=== PATIENT | male | born 1955 | race Caucasian/White ===

== ENCOUNTER 2016-11-27 19:05 | Inpatient (IN) | payer OTHER ==
--- NOTE | ~2016-11-27 | CN ---
Consultation Report [facility] [address] [place]. [address] NAME: RAMA WHARTON : 53 STATUS : ADM IN PAT#: [id number] AGE: 61 ADM/REG DATE : 11/27/16 MR#: [id number] REPORT SERV DATE: 11/30/16 DICTATED BY: LUIS FERNANDO VAZ DATE: 11/30/16 REPORT STATUS : Draft TRANSCRIBED BY: MODL DATE: 11/30/16 CONSULT REPORT DATE OF CONSULTATION: 11/30/2016 NURSE-PRACTITIONER WITH CARDIOTHORACIC SURGERY REASON FOR CONSULTATION: Multivessel coronary artery disease. REQUESTING PHYSICIAN: Dr. Ever Mendoza. HISTORY OF PRESENT ILLNESS: This is a pleasant 61-year-old male with a history of coronary artery disease with prior stenting by Dr. Brian 10 years ago. He also has a history of poorly-controlled diabetes with a couple of recent admissions with DKA. The patient was transferred here from [facility] on 11/27/2016, with DKA and atrial fibrillation RVR. Upon admission, his BNP was elevated at around 500 and his troponin was elevated at 6.6. The patient was taken for cardiac catheterization today and found to have significant multivessel disease with flow-limiting lesions to his left circumflex proximal to mid LAD, first obtuse marginal, second obtuse marginal, RCA and right PEA. He had an echocardiogram on 11/28/2016, which showed mildly to moderately depressed left ventricular ejection fraction estimated to be around 40% with mild mitral regurgitation, aortic regurgitation, and tricuspid regurgitation. The patient did drop his platelets after exposure to heparin and currently has a HIT panel pending. He is currently recovering after his right radial arteriogram with no complaints of chest pain or shortness of breath. His is with him at the bedside. PAST MEDICAL HISTORY: Type 2 diabetes mellitus, DKA, coronary artery disease, and hypertension. PAST SURGICAL HISTORY: No major surgeries other than PCI around 10 years ago. FAMILY HISTORY: Positive for coronary artery disease. 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 He is , with two grown children and several grandchildren. He smoked on and off for the past 30 years and uses smokeless tobacco. He says he quit cigarettes 1 year ago. Denies any history of alcohol abuse or use of illicit drugs. REVIEW OF SYSTEMS: A 10-point review of systems was obtained and is negative other than HPI. PHYSICAL EXAMINATION: VITAL SIGNS: From today temperature 97.5, heart rate 72 sinus rhythm, blood pressure 127/74, respiratory rate 16, and O2 saturation 96% on room air. GENERAL: Pleasant thin male, in no acute distress. Consultation Report [facility] [id number] [place]. [address] NAME: RAMA WHARTON : 53 STATUS : ADM IN PAT#: [id number] AGE: 61 ADM/REG DATE : 11/27/16 MR#: [id number] REPORT SERV DATE: 11/30/16 DICTATED BY: LUIS FERNANDO VAZ DATE: 11/30/16 REPORT STATUS : Draft TRANSCRIBED BY: MODL DATE: 11/30/16 NEUROLOGIC: Alert and oriented x3. Pupils are equal, round, and reactive to light and accommodation. HEENT: Head normocephalic and atraumatic. Sclerae clear. Nose is midline with no abnormalities. Teeth with no abnormalities. Ears with no abnormalities. NECK: Supple with no thyromegaly or lymphadenopathy. LUNGS: Clear to auscultation bilaterally with normal effort. CARDIAC: S1, S2 with no murmurs, rubs, or gallops. ABDOMEN: Soft, nondistended with active bowel sounds. EXTREMITIES: Free of cyanosis, clubbing, or edema. LABORATORY DATA: From today, white blood cell count 8.0, hemoglobin 13, hematocrit 39, and platelets 122. Sodium 146, potassium 3.4, chloride 113, bicarbonate 28, BUN 12, creatinine 0.6, glucose 46, and hemoglobin A1c 11. ASSESSMENT AND PLAN: This is a pleasant 61-year-old male with a history of coronary artery disease as well as history of poorly-controlled diabetes, admitted with NSTEMI, DKA, and atrial fibrillation with RVR. Atrial fibrillation now resolved after amiodarone drip. The patient was taken for cardiac catheterization today and found to have multivessel coronary artery disease as mentioned above. Official cath report is pending but the patient will need around 4-to-5 vessel CAB plus or minus Maze procedure. I discussed the risks and benefits of the coronary bypass grafting with the patient and his as well as alternatives to surgery and his STS risk scores. STS risk stratification for him and this particular surgery include an overall mortality of 1% and a morbidity mortality of 10.5%. I discussed these findings in relation to his expectations for surgery and recovery, and the patient is willing to proceed. I will discuss the plan of care with Dr. Weeks and we will review the images and plan for surgical intervention either on Wednesday or of this week. I thank you for the consultation and we look forward to helping you take care of Mr. Rama Wharton. JONA/LONG Luis Fernando aVz NP / [id number] CC: Luis Fernando Mathis IV, M.D.
--- NOTE | ~2016-11-27 | CN ---
Consultation Report [facility] [address] [place]. 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 Brian some 10 years ago, was admitted with increasing blood sugar, and found to be in diabetic ketoacidosis. His blood sugar was 630 on admission is now 162 mg percent this morning. BUN and creatinine are 36 and 1.17 mg percent respectively. He had been transferred from [facility] last night on amiodarone drip for paroxysmal atrial fibrillation. His TSH is low at 0.1 x2. Free T4 and free T3 are pending. B-type natriuretic peptide is elevated at 472, but he denies being short of breath. He denies any chest pain. EKG shows previous inferior myocardial infarction. He denies being hypertensive and sees Dr. Allen his regular physician. He says he is on insulin, but have no other medications recorded at this time from home. FAMILY HISTORY: Positive for heart disease. SOCIAL HISTORY: He is and has two children, apparently both healthy. ALLERGIES: THERE ARE NO KNOWN ALLERGIES TO MEDICATIONS. PAST SURGICAL HISTORY: He denies any major operative procedures other than stenting several years ago. At the present time, he is not short of breath or having chest pain. PHYSICAL EXAMINATION: VITAL SIGNS: Blood pressure 130/70. HEENT: Head is normocephalic. Eyes, PERRLA. Nose had no epistaxis. SKIN: Clear of ulcerations. NECK: Supple. CHEST: Clear. Good breath sounds. Absence of rales, rhonchi, or wheezes. HEART: Regular rhythm. Normal S1 and S2. There is an S3 third heart sound that is prominent in the lower left sternal border and apex. I hear no pathologic murmurs. ABDOMEN: Benign. Nontender. He is somewhat thin. EXTREMITIES: He had no clubbing, edema, or cyanosis. NEUROLOGIC: Exam intact. He is oriented to time, place, and person. He does not like to be in the hospital. CLINICAL IMPRESSIONS: 1. Non ST-elevation myocardial infarction. 2. Diabetic ketoacidosis. 3. Probable hyperthyroidism. 4. Paroxysmal atrial fibrillation, presently in sinus rhythm. 5. Previous stenting for coronary artery disease, remote. Consultation Report [facility] [address] [place]. [address] NAME: RAMA KIRK : 53 STATUS : ADM IN PAT#: [id number] AGE: 61 ADM/REG DATE : 11/27/16 MR#: [id number] REPORT SERV DATE: 11/28/16 DICTATED BY: REYES BUSH DATE: 11/28/16 REPORT STATUS : Draft TRANSCRIBED BY: LONG DATE: 11/28/16 RECOMMENDATIONS: 1. Add low-dose Coreg. 2. Change to oral amiodarone, he was started on IV amiodarone yesterday at [facility] ,and is presently in sinus rhythm. 3. Crestor statin therapy. 4. Aspirin. 5. Continue heparin drip. 6. Continue therapy for diabetic ketoacidosis. He will be a candidate for repeat catheterization when DKA is resolved and renal function is stable. Further recommendations to follow clinical course. An echocardiogram to be done this morning. DI/LONG Reyes Bush M.D. / [id number] CC: Juancho Mathis IV, M.D.
--- NOTE | ~2016-11-27 | HP ---
History And Physical [facility] [address] [place]. [address] NAME: RAMA KIRK : 53 STATUS : ADM IN [facility]#: [id number] AGE: 61 ADM/REG DATE : 11/27/16 MR#: [id number] REPORT SERV DATE: 11/27/16 DICTATED BY: HEATHER BROWER DATE: 11/27/16 REPORT STATUS : Draft TRANSCRIBED BY: MODL DATE: 11/27/16 DATE OF ADMISSION: 11/27/2016 CHIEF COMPLAINT: High blood sugar. HISTORY OF PRESENT ILLNESS: The patient is a 61-year-old, white gentleman with a past medical history of type 2 diabetes, on long-acting and short-acting insulin as well as coronary artery disease and hypertension, who presented to an outside ER tonight with high blood sugar. The patient was last hospitalized for diabetic ketoacidosis in March of last year. Since that time, he said he has been doing well. He takes both short and long- acting insulin at home and says he has been taking those without missing any doses. He denies any recent illnesses. He says beginning last night after dinner, he began having nausea and vomiting that persisted overnight and into today and he is unable to keep anything down. He denies any abdominal pain associated with this. Denies any fevers, chills, or sweats. Apparently, over the course of the day, he became more lethargic and altered and his brought him to the outside emergency room where he was found to be in diabetic ketoacidosis with anion gap of 46, pH is 7.1, acute renal failure with a creatinine of 2.1 and was in new onset atrial fibrillation with rapid ventricular response. He was treated with IV fluids and insulin drip, placed on the amiodarone drip for his atrial fibrillation, and transferred here for further management. Of note, he also had hyperkalemia on arrival there with a potassium of 6.7, which should come down to 5 prior to transfer here. On arrival here, he is now completely awake and alert and oriented x3. He remains on amiodarone drip as well as an insulin drip. We are currently awaiting his lab values here. PAST MEDICAL HISTORY: 1. Type 2 diabetes. 2. Coronary artery disease. 3. Hypertension. 4. Questionable history of a diagnosis of multiple sclerosis. HOME MEDICATIONS: See medication reconciliation form. ALLERGIES: NO KNOWN DRUG ALLERGIES. SOCIAL HISTORY: He lives in [place], [place]. 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 Has a history of smoking and snuff, though nothing recently. He denies any alcohol or IV drug abuse. FAMILY HISTORY: History of CVA and breast cancer in his mother as well as coronary artery disease in his father. He also has a sister with thyroid disease and another sister with irritable bowel syndrome. REVIEW OF SYSTEMS: 10-point review of systems negative except as mentioned in the HPI. History And Physical [address] [address] NAME: RAMA KIRK : 53 STATUS : ADM IN [facility]#: [id number] AGE: 61 ADM/REG DATE : 11/27/16 MR#: [id number] REPORT SERV DATE: 11/27/16 DICTATED BY: HEATHER BROWER DATE: 11/27/16 REPORT STATUS : Draft TRANSCRIBED BY: LONG DATE: 11/27/16 PHYSICAL EXAMINATION: GENERAL: In no acute distress. HEENT: Pupils equal, round, and reactive to light. Extraocular movements intact. Dry mucous membranes. NECK: Supple. Nontender. No lymphadenopathy. No thyromegaly. No jugular venous distention. LUNGS: Clear to auscultation bilaterally. CARDIOVASCULAR: Tachycardic. No murmurs, rubs, or gallops. ABDOMEN: Soft, nontender, nondistended. Positive bowel sounds. No hepatosplenomegaly. EXTREMITIES: No cyanosis, clubbing, or edema. NEUROLOGIC: Alert and oriented x3. Cranial nerves intact. PSYCH: Mood appropriate. LABS AND IMAGING: Pending at our institution. At the outside hospital, his creatinine was 2.1. His pH was 7.1. His sodium was within normal limits. His initial potassium was 6.7, which came down to 5.0 on the next lab check. His initial glucose over there was greater than a 1000. His EKG showed atrial fibrillation with rapid ventricular response in the 150s to 160s. [place] [address]. His serum acetones were moderate. ASSESSMENT AND PLAN: The patient is a 61-year-old gentleman with past medical history of type 2 diabetes, coronary artery disease, and hypertension, who presents with diabetic ketoacidosis, acute renal failure, and atrial fibrillation with rapid ventricular response. 1. Diabetic ketoacidosis. The patient will be placed on DKA protocol. He is currently getting normal saline and an insulin drip. We will repeat his BMP here and then check it q.6 hours as well as a mag and a phos. We will also check his fingerstick glucoses q.1 hour and we will treat him appropriately. Assuming his potassium is within normal limits, we will place him on electrolyte replacement protocol. Once glucose drops less than 200, we will change his IV fluids to D5 half-normal saline and decrease his insulin drip. When the patient is able to take p.o. and his anion gap closes, we will transition him over to subcutaneous insulin. 2. Acute renal failure. The patient's creatinine was elevated at 2.1 at the outside hospital. Likely, this is due to volume depletion. We will monitor his urine output and electrolytes closely as we hydrate him here. 3. Atrial fibrillation with rapid ventricular response. This appears to be new onset. Currently, he is rate controlled on amiodarone drip. We will continue this overnight. We will check cardiac markers now and q.8 hours x3. We will also get an EKG here as well as echocardiogram in the morning as well as check thyroid function panel. 4. We will hold patient's home antihypertensive medicines for now. 5. Acute encephalopathy was likely secondary to his DKA, now it appears to be resolved. We will monitor his mental status closely. 6. The patient will be on heparin for DVT prophylaxis and Protonix for gastrointestinal prophylaxis. 7. The patient is full code. 8. The patient has a high probability of sudden clinically significant or life threatening deterioration in his condition. History And Physical [address] [place]. [address] NAME: RAMA KIRK : 53 STATUS : ADM IN [facility]#: [id number] AGE: 61 ADM/REG DATE : 11/27/16 MR#: [id number] REPORT SERV DATE: 11/27/16 DICTATED BY: HEATHER BROWER DATE: 11/27/16 REPORT STATUS : Draft TRANSCRIBED BY: MODL DATE: 11/27/16 Total critical care time spent on this patient was 45 minutes including review of the patient's outside records as well as time at bedside. SHILA/LONG Heather Brower MD / [id number] CC: Juancho Mathis IV, M.D.
--- NOTE | ~2016-11-27 | IDS ---
Interim Discharge Summary [facility] [address] [place]. [address] NAME: RAMA KIRK : 53 STATUS : ADM IN [facility]#: [id number] AGE: 61 ADM/REG DATE : 11/27/16 MR#: [id number] REPORT SERV DATE: 12/07/16 DICTATED BY: JR. SHERIDAN WILLIAM JOHN DATE: 12/07/16 REPORT STATUS : Draft TRANSCRIBED BY: MODDaniela DATE: 12/07/16 ADMISSION DATE: 11/27/2016 DISCHARGE DATE: The patient transferred out of the ICU on 11/30/2016, therefore, this summary will cover the time period from 12/01/2016 through 12/07/2016. WORKING DIAGNOSES: 1. Gpt-RT-kzsqxblhw myocardial infarction. 2. Multivessel coronary artery disease with status post coronary artery bypass graft with left atrial appendage ligation on 12/04. 3. Status post diabetic ketoacidosis with uncontrolled diabetes mellitus. Hemoglobin A1c of 11.1. 4. Acute kidney injury, which is resolved. 5. Right lower extremity deep vein thrombosis found on vein mapping. 6. Atrial fibrillation with rapid ventricular response. 7. Acute systolic heart failure with ejection fraction 40%. 8. Thrombocytopenia, which is resolving. OPERATIONS, PROCEDURES, AND TREATMENTS: 1. Urgent coronary artery bypass graft x3 with left internal mammary to the left anterior descending with reverse saphenous vein graft to the obtuse marginal 2 and posterior descending with pulmonary vein ablation and left atrial appendage clipping done by Dr. Weeks on 12/04/2016. 2. Chest x-ray done 11/27/2016, which showed no acute findings. 3. Echocardiogram done 11/28/2016, which showed normal left ventricular size with mild-to- moderate global left ventricular systolic dysfunction. Ejection fraction of 40% with mild left ventricular diastolic function. Normal right ventricular size and systolic function. Mild aortic, mitral, and tricuspid regurgitation. 4. Cardiac catheterization done 11/30/2016, which showed left ventricular ejection fraction of 40% with apical akinesis versus severe hypokinesis. There were diffuse 75% intrastent thrombosis in the mid LAD stent. There was long 90% in the left circumflex diffuse disease in the posterior descending and moderate coronary artery calcification. 5. CT of the chest done 11/30/2016, which showed small bilateral free-flowing pleural effusion with bibasilar dependent atelectasis, triple-vessel coronary artery disease, nonobstructing left nephrolith, and 1.3 cm left thyroid nodules. 6. Carotid flow study done 11/30/2016, which showed category 1 disease bilaterally with antegrade vertebral flow. 7. Multiple followup chest x-rays. CURRENT MEDICATIONS: Please see the list on progress note. HOSPITAL COURSE: Briefly, the patient is a 61-year-old gentleman who presented to the emergency room on 11/27/2016, with high blood sugar. The patient began having nausea and vomiting the previous evening with dinner. He became more lethargic over the course of the day and presented to the emergency room with an anion gap of 46, pH 7.1, and a creatinine of Interim Discharge Summary [address] [address] NAME: RAMA KIRK : 53 STATUS : ADM IN [facility]#: [id number] AGE: 61 ADM/REG DATE : 11/27/16 MR#: [id number] REPORT SERV DATE: 12/07/16 DICTATED BY: JR. SHERIDAN WILLIAM JOHN DATE: 12/07/16 REPORT STATUS : Draft TRANSCRIBED BY: LONG DATE: 12/07/16 2.1. The patient was admitted to the intensive care unit where he was treated with insulin drip and electrolyte management. He was incidentally found to have elevated troponin at 3.54 and 6.65 and was seen in consultation by Cardiology, underwent a cardiac catheterization and echocardiogram which are detailed above. These showed severe triple- vessel coronary disease and Thoracic Surgery was consulted. The patient underwent a workup for coronary artery bypass grafting, also had vein mapping which did show below the knee deep vein thrombosis. Eventually, the patient underwent a three-vessel coronary artery bypass graft and Maze procedure as detailed above. The patient remained in the intensive care unit for one day and was transferred to the floor. He did have thrombocytopenia. Heparin-induced thrombocytopenia panel was negative. CURRENT ISSUES: 1. Multivessel coronary artery disease with non-ST elevation myocardial infarction, status post coronary artery bypass grafting-management per Cardiology and thoracic surgery. 2. Status post diabetic ketoacidosis with uncontrolled diabetes mellitus type 2. The patient is on Levemir 15 units daily and NovoLog 5 units before meals as well as sliding scale here. At home, he was on 50 units of Levemir and 15 units before meals. We will continue present and would consider a lower dose of Levemir at discharge. 3. Acute kidney injury. This is completely resolved. 4. To the right lower extremity deep vein thrombosis, vein mapping this is below the knee, therefore anticoagulation is somewhat controversial. The patient is on aspirin and may consider a followup venous Doppler ultrasound. The patient is on Coumadin for atrial fibrillation with rapid response, which has resolved. 5. Acute systolic heart failure with ejection fraction of 40%. The patient is on Coreg, is on an MARY ANN inhibitor at home. We will defer this decision to Cardiology. 6. We will discharge this patient when okay with Cardiology, Cardiovascular, and thoracic surgery. My partner will assume care of this patient in the morning. WJF/MODL Anthony Sheridan Jr, MD / [id number] CC: Anthony Sheridan Jr, MD
--- NOTE | ~2016-11-27 | OP ---
Record Of Operation [facility] [address] [place]. [address] NAME: RAMA WHARTON : 53 STATUS : ADM IN PAT#: [id number] AGE: 61 ADM/REG DATE : 11/27/16 MR#: [id number] REPORT SERV DATE: 12/04/16 DICTATED BY: MOHAN TEMPLE DATE: 12/04/16 REPORT STATUS : Draft TRANSCRIBED BY: MODL DATE: 12/04/16 DATE OF PROCEDURE: 12/04/2016 PREOPERATIVE DIAGNOSES: 1. Non-ST segment elevation myocardial infarction. 2. Three-vessel coronary artery disease. 3. Diabetic ketoacidosis. 4. Diabetes mellitus type 2. 5. Hypertension. 6. Hyperlipidemia. 7. Paroxysmal atrial fibrillation. 8. Prior tobacco abuse. 9. Superficial deep venous thrombosis. POSTOPERATIVE DIAGNOSES: 1. Non-ST segment elevation myocardial infarction. 2. Three-vessel coronary artery disease. 3. Diabetic ketoacidosis. 4. Diabetes mellitus type 2. 5. Hypertension. 6. Hyperlipidemia. 7. Paroxysmal atrial fibrillation. 8. Prior tobacco abuse. 9. Superficial deep venous thrombosis. OPERATION/PROCEDURE PERFORMED: 1. Median sternotomy. 2. Extracorporeal circulation. 3. Urgent coronary artery bypass grafting x3, left internal mammary artery, left anterior descending, reverse greater saphenous vein graft to obtuse margin #2, reverse greater saphenous vein graft to posterior descending artery. 4. Pulmonary vein ablation. 5. Left atrial appendage clip with 35 mm AtriClip. 6. JADA. 7. Endoscopic vein harvest, right leg. 8. Prevena dressing placement. SURGEON: Mohan Temple MD PROTOCOL MANAGER: Miguelina Singer. ANESTHESIOLOGIST: Juancho Pennington M.D. TUBES AND DRAINS: A 24-Finnish Torrey to the left pleural space and a 32-Finnish anterior mediastinal chest tube. Record Of Operation [facility] [address] [place]. [address] NAME: RAMA WHARTON : 53 STATUS : ADM IN PAT#: [id number] AGE: 61 ADM/REG DATE : 11/27/16 MR#: [id number] REPORT SERV DATE: 12/04/16 DICTATED BY: MOHAN TEMPLE DATE: 12/04/16 REPORT STATUS : Draft TRANSCRIBED BY: MODL DATE: 12/04/16 POSTOPERATIVE CONDITION: Stable to CVICU. DETAILS OF CARDIOPULMONARY BYPASS: Cross-clamp of 74 minutes. Total cardiopulmonary bypass time of 99 minutes. Weaned on 5 mcg per kilo per minute of dobutamine. INTRAOPERATIVE FINDINGS: Transesophageal echo showed trace TR, mild MR, no , trace AI, EF was 40%. Post procedure, his EF was approximately 50%. ANATOMIC FINDINGS: Posterior descending artery was diffusely diseased. The major portion of the diffuse disease was split and a patch angioplasty was performed with the saphenous vein graft with anastomosis approximately 2.5 cm in length. D1 and D2 were 7 mm in size. DETAILS OF PULMONARY VEIN ISOLATION: PVI was performed with atrial clamp x3 on each pulmonary vein cuff in an X pattern and then one in the middle of the X and then a 35 mm AtriClip was placed in the left atrial appendage. DETAILS OF CARDIOPULMONARY BYPASS GRAFTIN. Graft #1, left internal mammary to left anterior descending. This was a 1.75 mm target. Reverse greater saphenous vein graft to obtuse marginal #2. This was a 2 mm target. Reverse greater saphenous vein graft to posterior descending artery. This was a 1.5 mm target with diffuse disease with a 2.5 cm patch angioplasty performed with anastomosis. There were excellent Doppler signals, both pre and post protamine. INDICATIONS FOR PROCEDURE: Mr. Wharton is a 61-year-old gentleman who presented with diabetic ketoacidosis, found to have an NSTEMI, and then was found to undergo a heart catheterization which revealed three-vessel coronary artery disease. In addition, he had paroxysmal atrial fibrillation. The risks, benefits, and alternatives were discussed with the patient including but not limited to, bleeding, infection, stroke, , heart attack, need for future operations, all questions were answered. His STS risk was calculated, mortality 1% and total morbidity of 10.5%. All questions were answered. His STS risk were discussed with the patient's family. DESCRIPTION OF PROCEDURE: The patient was brought to the operating room and placed supine on the operating room table. After satisfactory induction of general endotracheal anesthesia, he was prepped and draped in the usual sterile fashion. Working simultaneously, the median sternotomy was performed while endoscopic vein harvest was performed from the right leg. Skin and subcutaneous tissues were divided. Clavipectoral fascia was divided. Sternum was divided in the midline. Rultract retractor was placed and the internal mammary artery was harvested in a pedicle fashion from its takeoff under the subclavian vein to the bifurcation of the diaphragm. Systemic heparinization was achieved. After three minutes, the pedicle was clipped and divided. The bifurcation of the diaphragm was infiltrated with papaverine. A 24-Finnish Torrey was placed in the left pleural space and exteriorized. Sternal retractor was placed. Thymic tissue was divided in the midline up to the innominate vein. Pericardium was opened. Pericardial well was created. Ascending aortic cannulation was achieved through a dual pursestring at the base of the innominate artery. Antegrade root vent cardioplegia tack was placed. The dual stage venous cannula was placed through pursestring in the right atrial appendage. The conduit was prepared for bypass. Record Of Operation [facility] [address] [place]. [address] NAME: RAMA WHARTON : 53 STATUS : ADM IN [facility]#: [id number] AGE: 61 ADM/REG DATE : 11/27/16 MR#: [id number] REPORT SERV DATE: 12/04/16 DICTATED BY: MOHAN TEMPLE DATE: 12/04/16 REPORT STATUS : Draft TRANSCRIBED BY: LONG DATE: 12/04/16 Cardiopulmonary bypass was initiated after documentation of an adequate ACT. The right pulmonary vein cuff was dissected out. The AtriCure clamp was placed around the cuff ensuring that just the cuff of atrium was in the clamp and the clamp was applied for three times per the dental cream maker's specifications. The attention was turned to the left pulmonary vein cuff and the left pulmonary vein cuff was dissected out and the clamp was applied to the vein cuff three times according to the dental cream maker's specifications. The left atrial appendage was then measured, the base was measured, it was measured to a 35 mm AtriClip, 35 mm clip was brought up and placed at the base of the left atrial appendage. Cross-clamp was brought up. The heart was arrested with cold antegrade cardioplegia for a total of 800 mL switched to intermittent aliquots every 15 to 20 minutes throughout the remainder of the cross clamp. The vein grafts were then performed as mentioned in the findings. Reverse greater saphenous vein graft to posterior descending artery. A large portion of the artery was opened approximately 2.5 cm and a patch angioplasty was performed using the anastomosis, this was done with 8-0 Surgipro. The vein was cut to length, spatulated, and then attention was turned to the obtuse marginal #2. It was opened on the soft spot. A vein was brought up, spatulated, and a running continuous anastomosis was performed between reverse greater saphenous vein graft and the obtuse marginal #2. The vein was cut to length, spatulated. Proximal aortotomies were performed enlarged with a 5.2 mm punch and running continuous anastomosis were performed using 6-0 Prolene. Vein graft markers were placed. The internal mammary artery was brought down through a wide V in the pericardium. It was spatulated and anastomosed to a soft spot on the anterior portion of the LAD. Clip bulldog was removed. There was excellent flow, both in the graft and the proximal artery and the distal artery. Epicardium was attached to the pedicle in two places and vein grafts were de-aired and the cross-clamp was removed. The patient returned to normal sinus rhythm. He was able to be weaned from cardiopulmonary bypass without incident. Protamine was administered. He was decannulated. All cannulation sites were oversewn with 4-0 Prolene. The pericardium was loosely reapproximated over the right ventricle and the ascending aorta. Hemostasis was obtained. A 24-Finnish Torrey had been placed in the left pleural space and then exteriorized. A 32-Finnish chest tube was placed under the sternum. Hemostasis was obtained. The sternum was approximated with eight stainless steel sternal wires, some of these were double wires. Clavipectoral fascia was reapproximated using running #1 Stratafix, subcutaneous tissues closed using running #1 Stratafix, skin and subcutaneous tissues closed using 2-0 Quill. A Prevena dressing was placed. The patient was transferred to the CVICU in critical, stable condition. [facility]/MODL Mohan Temple MD / [id number] CC: Mohan Temple MD
--- NOTE | ~2016-11-27 | DS ---
Discharge Summary [facility] [address] [place]. [address] NAME: RAMA KIRK : 53 STATUS : DIS IN PAT#: [id number] AGE: 61 ADM/REG DATE : 11/27/16 MR#: [id number] REPORT SERV DATE: 12/09/16 DICTATED BY: HARITHA RHODES DATE: 12/08/16 REPORT STATUS : Draft TRANSCRIBED BY: MODL DATE: 12/08/16 ADMISSION DATE: 11/27/2016 DISCHARGE DATE: 12/08/2016 DISCHARGE DIAGNOSES: 1. Diabetic ketoacidosis, resolved. 2. Uncontrolled diabetes mellitus with A1c 11.1, interestingly the patient requires less amount of insulin at home. 3. Resolved acute kidney injury. 4. Dlv-SE-jhfnrejfa myocardial infarction/status post CABG three-vessels. 5. Hypertension. 6. Atrial fibrillation. 7. Chronic Coumadin use, started here. 8. Chronic heart failure, systolic dysfunction with ejection fraction 40%. NIGHT COURT MAGISTRATE: 1. Dr. Weeks. 2. Dr. Bush. HISTORY OF PRESENT ILLNESS: This is a 61-year-old male patient who came to the hospital with hyperglycemia, was found to have non-ST elevation MT. Please see dictated H and P done by Dr. Miller. Please see dictated interim discharge summary done by Dr. Sheridan. HOSPITAL COURSE: The patient was admitted to hospital with DKA, was found to have non-ST elevation MT, had went through cardiac evaluation, was found to have multivessel disease and consulting Dr. Weeks. He had a CABG done and transferred out of the unit. After he came out of the unit, he improved. Initially, he came with DKA with uncontrolled diabetes, seen by diabetic education nurse. Interestingly, the patient's insulin requirement is much less than at home dose and emphasized the diabetic education again. He voiced understanding about insulin use. Therefore, the discharge insulin will be Levemir/Lantus 15 units at night and NovoLog 5 units for each meal. He voiced understanding and education was given more than 30 minutes. TIME SPENT: More than 30 minutes. DISCHARGE MEDICATION: 1. Aspirin 81 mg once a day. 2. Atorvastatin 40 mg once at nighttime. 3. Amiodarone 200 mg twice a day. 4. Carvedilol 3.125 mg twice a day. 5. Levemir/Lantus 15 units at night. 6. NovoLog 5 units for each meal. Discharge Summary [place] [id number] [place]. [address] NAME: RAMA KIRK : 53 STATUS : DIS IN PAT#: [id number] AGE: 61 ADM/REG DATE : 11/27/16 MR#: [id number] REPORT SERV DATE: 12/09/16 DICTATED BY: HARITHA RHODES DATE: 12/08/16 REPORT STATUS : Draft TRANSCRIBED BY: MODL DATE: 12/08/16 7. Lisinopril 2.5 mg once a day. 8. [place] 10 was given from Cardiothoracic Surgery for postop care. DISPOSITION: The patient is discharged to home in stable condition. DICTATED BY: Mel Randall/LONG Haritha Rhodes M.D. / [id number] CC: Mel Randall M.D.
[~2016-11-27 19:05] MED LIST: HUMALOG SC; LANTUS SC; LEVEMIR SC; LOP25 PO; NOVOLOG SC; PRAVACHOL40 MG PO; PRIN2.5 PO
[2016-11-27 21:35] LABS: BASOPHILS 0.2 %; BASOPHILS ABSOLUTE 0.03 10/3/uL (0.0-0.16); EOSINOPHILS 0 %; HEMATOCRIT 42.5 % (40.0-51.0); IMMATURE GRANULOCYTES 0.6 %; IMMATURE GRANULOCYTES ABSOLUTE 0.09 10/3/uL (0.0-0.11); LYMPHOCYTES 7.3 %; LYMPHOCYTES ABSOLUTE 1.16 10/3/uL (0.67-4.30); MEAN CORPUS HGB CONC 32.9 g/dL (32.0-36.0); MEAN CORPUSCULAR HEMOGLOB 28.7 pg (26.0-34.0); MEAN CORPUSCULAR VOLUME 87.3 fL (80-100); MEAN PLATELET VOLUME 10.4 fL (9.2-13.0); MONOCYTES 7.2 %; MONOCYTES ABSOLUTE 1.14 10/3/uL (0.21-1.20); NEUTROPHILS 84.7 %; NEUTROPHILS ABSOLUTE 13.51 10/3/uL (2.02-8.40); PLATELET COUNT 181 10/3/uL (150-400); RBC DISTRIBUTION WIDTH 13.6 % (12.0-16.0); RED CELL COUNT 4.87 10/6/uL (4.7-6.1)
[2016-11-27 21:36] LABS: MANUAL DIFF NO %; WHITE BLOOD CELLS 15.9 10/3/uL (4.5-10.5)
[2016-11-27 21:41] LABS: INTERNATIONAL NORMAL RATI 1.2 UNITS (-); PROTIME (NOT ORD) 14.6 SEC (12.0-14.5)
[2016-11-27 21:43] LABS: PARTIAL THROMBO TIME 22.4 SEC (22.5-37.2)
[2016-11-27 22:03] LABS: BUN (BLOOD UREA NITROGEN) 46 MG/DL (6-23); CALCIUM, SERUM 8.9 MG/DL (8.5-10.4); CHLORIDE, SERUM 107 MMOL/L (96-112); CK-MB 17.5 NG/ML; CO2 (CARBON DIOXIDE) 17 MMOL/L (24-34); CREATININE 1.93 MG/DL (0.70-1.30); GFR AFRICAN AMERICAN 42 ML/MIN (>=60); GFR NON AFRICAN AMERICAN 36 ML/MIN (>=60); POTASSIUM, SERUM 4.6 MMOL/L (3.5-5.3); SODIUM, SERUM 144 MMOL/L (135-148)
[2016-11-27 22:04] LABS: CKMB INDEX (NOT ORD) 10.9; CPK 161 U/L (0-200); GLUCOSE, SERUM 630 MG/DL (60-99); TROPONIN I 3.54 NG/ML (<0.05)
[2016-11-27 22:11] LABS: B NATRIURETIC PEPTIDE (BNP) 471.5 PG/ML (< 100.0)
[2016-11-27 23:01] LABS: PROCALCITONIN 0.62 ng/mL (<0.5)
[2016-11-27 23:10] LABS: ASCORBIC ACID (UR NOT ORDER) NEG (NEG); BILIRUBIN, URINE NEGATIVE (NEG); KETONE, URINE 80 MG/DL (NEG); LEUKOCYTE ESTERASE(NOT OR NEG (NEG); WBC (NOT ORDERED) (RFLEX) 1 (0-5)
[2016-11-27 23:30] LABS: AMPHETAMINES (NOT ORD) NEG (NEG); BARBITURATES (NOT ORDERED NEG (NEG); BENZODIAZEPINES (NOT ORD) NEG (NEG); CANNABINOIDS (THC) NEG (NEG); COCAINE (NOT ORDERED) NEG (NEG); OPIATES NEG (NEG); PHENCYCLIDINE(PCP) NEG (NEG); TRICYCLICS NEG (NEG)
[2016-11-28 04:14] LABS: BASOPHILS 0.1 %; BASOPHILS ABSOLUTE 0.01 10/3/uL (0.0-0.16); EOSINOPHILS 0 %; HEMATOCRIT 39.3 % (40.0-51.0); IMMATURE GRANULOCYTES 0.2 %; IMMATURE GRANULOCYTES ABSOLUTE 0.03 10/3/uL (0.0-0.11); LYMPHOCYTES 7.9 %; LYMPHOCYTES ABSOLUTE 0.98 10/3/uL (0.67-4.30); MEAN CORPUS HGB CONC 33.1 g/dL (32.0-36.0); MEAN CORPUSCULAR HEMOGLOB 28.5 pg (26.0-34.0); MEAN CORPUSCULAR VOLUME 86.2 fL (80-100); MEAN PLATELET VOLUME 10.5 fL (9.2-13.0); MONOCYTES 6.8 %; MONOCYTES ABSOLUTE 0.84 10/3/uL (0.21-1.20); NEUTROPHILS ABSOLUTE 10.58 10/3/uL (2.02-8.40); PLATELET COUNT 170 10/3/uL (150-400); RBC DISTRIBUTION WIDTH 13.7 % (12.0-16.0); RED CELL COUNT 4.56 10/6/uL (4.7-6.1); WHITE BLOOD CELLS 12.4 10/3/uL (4.5-10.5)
[2016-11-28 04:15] LABS: MANUAL DIFF NO %
[2016-11-28 04:35] LABS: CHLORIDE, SERUM 100 MMOL/L (96-112); CK-MB 17.5 NG/ML; CREATININE 1.52 MG/DL (0.70-1.30); GFR AFRICAN AMERICAN 56 ML/MIN (>=60); GFR NON AFRICAN AMERICAN 48 ML/MIN (>=60)
[2016-11-28 04:37] LABS: BUN (BLOOD UREA NITROGEN) 33 MG/DL (6-23); CALCIUM, SERUM 7.6 MG/DL (8.5-10.4); CKMB INDEX (NOT ORD) 8.9; CO2 (CARBON DIOXIDE) 22 MMOL/L (24-34); CPK 196 U/L (0-200); GLUCOSE, SERUM 751 MG/DL (60-99); PHOSPHORUS, SERUM 4.8 MG/DL (2.5-4.5); POTASSIUM, SERUM 3.6 MMOL/L (3.5-5.3); SODIUM, SERUM 137 MMOL/L (135-148); TROPONIN I 6.65 NG/ML (<0.05)
[2016-11-28 04:48] LABS: FREE T4 1.28 NG/DL (0.76-1.46)
[2016-11-28 04:54] LABS: ULTRASENSITIVE TSH 0.101 MCIU/ML (0.358-3.740)
[2016-11-28 06:45] LABS: BASOPHILS 0.1 %; BASOPHILS ABSOLUTE 0.01 10/3/uL (0.0-0.16); EOSINOPHILS 0 %; HEMATOCRIT 38.5 % (40.0-51.0); HEMOGLOBIN 13.3 g/dL (13.6-17.8); IMMATURE GRANULOCYTES 0.2 %; IMMATURE GRANULOCYTES ABSOLUTE 0.03 10/3/uL (0.0-0.11); LYMPHOCYTES 6.8 %; LYMPHOCYTES ABSOLUTE 0.87 10/3/uL (0.67-4.30); MEAN CORPUS HGB CONC 34.5 g/dL (32.0-36.0); MEAN CORPUSCULAR HEMOGLOB 29.2 pg (26.0-34.0); MEAN CORPUSCULAR VOLUME 84.4 fL (80-100); MONOCYTES 10.9 %; MONOCYTES ABSOLUTE 1.39 10/3/uL (0.21-1.20); NEUTROPHILS ABSOLUTE 10.49 10/3/uL (2.02-8.40); PLATELET COUNT 160 10/3/uL (150-400); RBC DISTRIBUTION WIDTH 13.8 % (12.0-16.0); RED CELL COUNT 4.56 10/6/uL (4.7-6.1); WHITE BLOOD CELLS 12.8 10/3/uL (4.5-10.5)
[2016-11-28 06:46] LABS: MANUAL DIFF NO %
[2016-11-28 07:06] LABS: BUN (BLOOD UREA NITROGEN) 36 MG/DL (6-23); CALCIUM, SERUM 7.9 MG/DL (8.5-10.4); CHLORIDE, SERUM 118 MMOL/L (96-112); CK-MB 15.9 NG/ML; CO2 (CARBON DIOXIDE) 24 MMOL/L (24-34); CPK 218 U/L (0-200); CREATININE 1.17 MG/DL (0.70-1.30); FREE T4 1.21 NG/DL (0.76-1.46); GFR AFRICAN AMERICAN 77 ML/MIN (>=60); GFR NON AFRICAN AMERICAN 66 ML/MIN (>=60); POTASSIUM, SERUM 3.9 MMOL/L (3.5-5.3)
[2016-11-28 07:08] LABS: CKMB INDEX (NOT ORD) 7.3; GLUCOSE, SERUM 162 MG/DL (60-99); SODIUM, SERUM 151 MMOL/L (135-148); TROPONIN I 6.66 NG/ML (<0.05)
[2016-11-28 09:49] LABS: BUN (BLOOD UREA NITROGEN) 35 MG/DL (6-23); CALCIUM, SERUM 8.2 MG/DL (8.5-10.4); CHLORIDE, SERUM 116 MMOL/L (96-112); CK-MB 14.6 NG/ML; CKMB INDEX (NOT ORD) 6.2; CO2 (CARBON DIOXIDE) 23 MMOL/L (24-34); CPK 235 U/L (0-200); CREATININE 1.23 MG/DL (0.70-1.30); GFR AFRICAN AMERICAN 72 ML/MIN (>=60); GFR NON AFRICAN AMERICAN 63 ML/MIN (>=60); GLUCOSE, SERUM 225 MG/DL (60-99); PHOSPHORUS, SERUM 2.4 MG/DL (2.5-4.5); SODIUM, SERUM 145 MMOL/L (135-148)
[2016-11-28 09:50] LABS: TROPONIN I 5.11 NG/ML (<0.05)
[2016-11-28 14:17] LABS: CK-MB 11.1 NG/ML
[2016-11-28 14:18] LABS: CKMB INDEX (NOT ORD) 5.1; TROPONIN I 4.9 NG/ML (<0.05)
[2016-11-28 15:37] LABS: CALCIUM, SERUM 7.8 MG/DL (8.5-10.4); CHLORIDE, SERUM 115 MMOL/L (96-112); CO2 (CARBON DIOXIDE) 25 MMOL/L (24-34); CREATININE 1.07 MG/DL (0.70-1.30); GFR AFRICAN AMERICAN 86 ML/MIN (>=60); GFR NON AFRICAN AMERICAN 74 ML/MIN (>=60); POTASSIUM, SERUM 3.6 MMOL/L (3.5-5.3); SODIUM, SERUM 148 MMOL/L (135-148)
[2016-11-28 15:41] LABS: BUN (BLOOD UREA NITROGEN) 29 MG/DL (6-23); GLUCOSE, SERUM 162 MG/DL (60-99); PHOSPHORUS, SERUM 1.6 MG/DL (2.5-4.5)
[2016-11-28 23:29] LABS: BUN (BLOOD UREA NITROGEN) 21 MG/DL (6-23); CALCIUM, SERUM 7.6 MG/DL (8.5-10.4); CHLORIDE, SERUM 114 MMOL/L (96-112); CK-MB 7.3 NG/ML; CKMB INDEX (NOT ORD) 3.6; CO2 (CARBON DIOXIDE) 26 MMOL/L (24-34); CPK 204 U/L (0-200); CREATININE 0.89 MG/DL (0.70-1.30); GFR AFRICAN AMERICAN 106 ML/MIN (>=60); GFR NON AFRICAN AMERICAN 92 ML/MIN (>=60); GLUCOSE, SERUM 217 MG/DL (60-99); PHOSPHORUS, SERUM 1.6 MG/DL (2.5-4.5); POTASSIUM, SERUM 3.7 MMOL/L (3.5-5.3); SODIUM, SERUM 143 MMOL/L (135-148); TROPONIN I 3.25 NG/ML (<0.05)
[2016-11-29 04:25] LABS: BASOPHILS 0.3 %; BASOPHILS ABSOLUTE 0.03 10/3/uL (0.0-0.16); EOSINOPHILS 0.2 %; EOSINOPHILS ABSOLUTE 0.02 10/3/uL (0.0-0.53); HEMATOCRIT 37.1 % (40.0-51.0); HEMOGLOBIN 12.3 g/dL (13.6-17.8); IMMATURE GRANULOCYTES 0.1 %; IMMATURE GRANULOCYTES ABSOLUTE 0.01 10/3/uL (0.0-0.11); LYMPHOCYTES 23.8 %; LYMPHOCYTES ABSOLUTE 2.05 10/3/uL (0.67-4.30); MEAN CORPUS HGB CONC 33.2 g/dL (32.0-36.0); MEAN CORPUSCULAR HEMOGLOB 28.4 pg (26.0-34.0); MEAN CORPUSCULAR VOLUME 85.7 fL (80-100); MEAN PLATELET VOLUME 10.5 fL (9.2-13.0); MONOCYTES 4.5 %; MONOCYTES ABSOLUTE 0.39 10/3/uL (0.21-1.20); NEUTROPHILS 71.1 %; NEUTROPHILS ABSOLUTE 6.12 10/3/uL (2.02-8.40); PLATELET COUNT 117 10/3/uL (150-400); RBC DISTRIBUTION WIDTH 14.5 % (12.0-16.0); RED CELL COUNT 4.33 10/6/uL (4.7-6.1); WHITE BLOOD CELLS 8.6 10/3/uL (4.5-10.5)
[2016-11-29 04:27] LABS: MANUAL DIFF NO %
[2016-11-29 04:31] LABS: INTERNATIONAL NORMAL RATI 1.2 UNITS (-); PROTIME (NOT ORD) 15.2 SEC (12.0-14.5)
[2016-11-29 04:32] LABS: PARTIAL THROMBO TIME 42.2 SEC (22.5-37.2)
[2016-11-29 04:36] LABS: BUN (BLOOD UREA NITROGEN) 19 MG/DL (6-23); CALCIUM, SERUM 7.6 MG/DL (8.5-10.4); CHLORIDE, SERUM 115 MMOL/L (96-112); CO2 (CARBON DIOXIDE) 24 MMOL/L (24-34); CREATININE 0.89 MG/DL (0.70-1.30); GFR AFRICAN AMERICAN 106 ML/MIN (>=60); GFR NON AFRICAN AMERICAN 92 ML/MIN (>=60); PHOSPHORUS, SERUM 1.2 MG/DL (2.5-4.5); POTASSIUM, SERUM 3.4 MMOL/L (3.5-5.3); SODIUM, SERUM 145 MMOL/L (135-148)
[2016-11-29 04:37] LABS: GLUCOSE, SERUM 169 MG/DL (60-99)
[2016-11-29 06:15] LABS: BASOPHILS 0.3 %; BASOPHILS ABSOLUTE 0.02 10/3/uL (0.0-0.16); EOSINOPHILS 0.1 %; EOSINOPHILS ABSOLUTE 0.01 10/3/uL (0.0-0.53); HEMATOCRIT 36.2 % (40.0-51.0); IMMATURE GRANULOCYTES 0.1 %; IMMATURE GRANULOCYTES ABSOLUTE 0.01 10/3/uL (0.0-0.11); LYMPHOCYTES 22.8 %; LYMPHOCYTES ABSOLUTE 1.73 10/3/uL (0.67-4.30); MEAN CORPUS HGB CONC 33.1 g/dL (32.0-36.0); MEAN CORPUSCULAR HEMOGLOB 28.3 pg (26.0-34.0); MEAN CORPUSCULAR VOLUME 85.4 fL (80-100); MEAN PLATELET VOLUME 9.9 fL (9.2-13.0); MONOCYTES 4.7 %; MONOCYTES ABSOLUTE 0.36 10/3/uL (0.21-1.20); NEUTROPHILS ABSOLUTE 5.45 10/3/uL (2.02-8.40); PLATELET COUNT 94 10/3/uL (150-400); RBC DISTRIBUTION WIDTH 14.4 % (12.0-16.0); RED CELL COUNT 4.24 10/6/uL (4.7-6.1); WHITE BLOOD CELLS 7.6 10/3/uL (4.5-10.5)
[2016-11-29 06:17] LABS: MANUAL DIFF NO %
[2016-11-29 06:35] LABS: PARTIAL THROMBO TIME 66.5 SEC (22.5-37.2)
[2016-11-29 06:37] LABS: BUN (BLOOD UREA NITROGEN) 18 MG/DL (6-23); CALCIUM, SERUM 7.8 MG/DL (8.5-10.4); CHLORIDE, SERUM 114 MMOL/L (96-112); CO2 (CARBON DIOXIDE) 26 MMOL/L (24-34); GFR AFRICAN AMERICAN 111 ML/MIN (>=60); GFR NON AFRICAN AMERICAN 96 ML/MIN (>=60); PHOSPHORUS, SERUM 1.3 MG/DL (2.5-4.5); POTASSIUM, SERUM 3.3 MMOL/L (3.5-5.3); SODIUM, SERUM 146 MMOL/L (135-148)
[2016-11-29 06:38] LABS: GLUCOSE, SERUM 118 MG/DL (60-99)
[2016-11-30 04:23] LABS: BASOPHILS 0.5 %; BASOPHILS ABSOLUTE 0.04 10/3/uL (0.0-0.16); EOSINOPHILS 1.2 %; HEMATOCRIT 39.2 % (40.0-51.0); HEMOGLOBIN 13.1 g/dL (13.6-17.8); IMMATURE GRANULOCYTES 0.2 %; IMMATURE GRANULOCYTES ABSOLUTE 0.02 10/3/uL (0.0-0.11); LYMPHOCYTES ABSOLUTE 3.61 10/3/uL (0.67-4.30); MEAN CORPUS HGB CONC 33.4 g/dL (32.0-36.0); MEAN CORPUSCULAR HEMOGLOB 28.7 pg (26.0-34.0); MEAN PLATELET VOLUME 10.1 fL (9.2-13.0); MONOCYTES 5.4 %; MONOCYTES ABSOLUTE 0.43 10/3/uL (0.21-1.20); NEUTROPHILS 47.7 %; NEUTROPHILS ABSOLUTE 3.82 10/3/uL (2.02-8.40); PLATELET COUNT 122 10/3/uL (150-400); RBC DISTRIBUTION WIDTH 14.1 % (12.0-16.0); RED CELL COUNT 4.56 10/6/uL (4.7-6.1)
[2016-11-30 04:26] LABS: MANUAL DIFF NO %
[2016-11-30 04:34] LABS: CALCIUM, SERUM 8.5 MG/DL (8.5-10.4); CHLORIDE, SERUM 113 MMOL/L (96-112); CO2 (CARBON DIOXIDE) 28 MMOL/L (24-34); CREATININE 0.66 MG/DL (0.70-1.30); GFR AFRICAN AMERICAN 120 ML/MIN (>=60); GFR NON AFRICAN AMERICAN 104 ML/MIN (>=60); POTASSIUM, SERUM 3.4 MMOL/L (3.5-5.3); SODIUM, SERUM 146 MMOL/L (135-148)
[2016-11-30 04:37] LABS: BUN (BLOOD UREA NITROGEN) 12 MG/DL (6-23); GLUCOSE, SERUM 46 MG/DL (60-99)
[2016-11-30 04:54] LABS: INTERNATIONAL NORMAL RATI 1.1 UNITS (-); PROTIME (NOT ORD) 14.3 SEC (12.0-14.5)
[2016-11-30 05:23] LABS: CHOLESTEROL 132 MG/DL (< 200); HDL CHOLESTEROL 33 MG/DL (> 39); LDL CHOLESTEROL 70 MG/DL (< 130); NON-HDL CHOLESTEROL 99 MG/DL (< 160); TRIGLYCERIDE 145 MG/DL (< 150)
[2016-11-30 13:11] LABS: HEPARIN-INDUCED PLATELET AB NEGATIVE (NEGATIVE); HIT PATIENT O.D. 0.035 OD (0.000-0.299)
[2016-11-30 22:57] LABS: ASCORBIC ACID (UR NOT ORDER) NEG (NEG); BILIRUBIN, URINE NEGATIVE (NEG); KETONE, URINE TRACE MG/DL (NEG); LEUKOCYTE ESTERASE(NOT OR NEG (NEG); WBC (NOT ORDERED) (RFLEX) 1 (0-5)
[2016-12-01 07:16] LABS: BASOPHILS 0.5 %; BASOPHILS ABSOLUTE 0.02 10/3/uL (0.0-0.16); EOSINOPHILS 2.3 %; HEMATOCRIT 37.8 % (40.0-51.0); HEMOGLOBIN 12.6 g/dL (13.6-17.8); IMMATURE GRANULOCYTES 0.2 %; IMMATURE GRANULOCYTES ABSOLUTE 0.01 10/3/uL (0.0-0.11); INTERNATIONAL NORMAL RATI 1.2 UNITS (-); LYMPHOCYTES 30.9 %; LYMPHOCYTES ABSOLUTE 1.37 10/3/uL (0.67-4.30); MANUAL DIFF NO %; MEAN CORPUS HGB CONC 33.3 g/dL (32.0-36.0); MEAN CORPUSCULAR HEMOGLOB 28.6 pg (26.0-34.0); MEAN CORPUSCULAR VOLUME 85.7 fL (80-100); MEAN PLATELET VOLUME 10.2 fL (9.2-13.0); MONOCYTES 7.4 %; MONOCYTES ABSOLUTE 0.33 10/3/uL (0.21-1.20); NEUTROPHILS 58.7 %; NEUTROPHILS ABSOLUTE 2.61 10/3/uL (2.02-8.40); PLATELET COUNT 104 10/3/uL (150-400); PROTIME (NOT ORD) 14.7 SEC (12.0-14.5); RBC DISTRIBUTION WIDTH 13.4 % (12.0-16.0); RED CELL COUNT 4.41 10/6/uL (4.7-6.1); WHITE BLOOD CELLS 4.4 10/3/uL (4.5-10.5)
[2016-12-01 07:26] LABS: % IRON SAT 57 % (20-50); ALKALINE PHOSPHATASE 98 U/L (45-117); BUN (BLOOD UREA NITROGEN) 12 MG/DL (6-23); CALCIUM, SERUM 8.5 MG/DL (8.5-10.4); CHLORIDE, SERUM 110 MMOL/L (96-112); CO2 (CARBON DIOXIDE) 29 MMOL/L (24-34); CREATININE 0.56 MG/DL (0.70-1.30); GFR AFRICAN AMERICAN 128 ML/MIN (>=60); GFR NON AFRICAN AMERICAN 111 ML/MIN (>=60); GLUCOSE, SERUM 101 MG/DL (60-99); IRON BINDING CAPACITY 186 MCG/DL (250-450); IRON, SERUM 106 MCG/DL (35-150); PHOSPHORUS, SERUM 2.6 MG/DL (2.5-4.5); POTASSIUM, SERUM 3.5 MMOL/L (3.5-5.3); SGOT(AST) 25 U/L (5-40); SGPT(ALT) 28 U/L (5-65); SODIUM, SERUM 143 MMOL/L (135-148); TOTAL BILIRUBIN 0.9 MG/DL (0-1.2)
[2016-12-01 07:27] LABS: ALBUMIN 2.8 G/DL (3.5-5.0); GLOBULIN 2.7 G/DL (2.5-4.1); TOTAL PROTEIN 5.5 G/DL (6.0-8.5)
[2016-12-02 04:33] LABS: HEMATOCRIT 39.8 % (40.0-51.0); HEMOGLOBIN 13.4 g/dL (13.6-17.8)
[2016-12-02 04:39] LABS: INTERNATIONAL NORMAL RATI 1.1 UNITS (-); PROTIME (NOT ORD) 13.7 SEC (12.0-14.5)
[2016-12-02 04:49] LABS: ALBUMIN 2.9 G/DL (3.5-5.0); DIRECT BILIRUBIN 0.2 MG/DL (0.0-0.4); INDIRECT BILIRUBIN(NOT ORDER) 0.5 MG/DL (0.1-0.9); TOTAL BILIRUBIN 0.7 MG/DL (0-1.2); TOTAL PROTEIN 5.8 G/DL (6.0-8.5)
[2016-12-03 13:56] LABS: HEMATOCRIT 41.2 % (40.0-51.0); HEMOGLOBIN 13.6 g/dL (13.6-17.8)
[2016-12-03 14:13] LABS: ALBUMIN 3.1 G/DL (3.5-5.0); BUN (BLOOD UREA NITROGEN) 15 MG/DL (6-23); CALCIUM, SERUM 8.8 MG/DL (8.5-10.4); CHLORIDE, SERUM 105 MMOL/L (96-112); CO2 (CARBON DIOXIDE) 28 MMOL/L (24-34); CREATININE 0.81 MG/DL (0.70-1.30); DIRECT BILIRUBIN 0.1 MG/DL (0.0-0.4); GFR AFRICAN AMERICAN 110 ML/MIN (>=60); GFR NON AFRICAN AMERICAN 95 ML/MIN (>=60); INDIRECT BILIRUBIN(NOT ORDER) 0.3 MG/DL (0.1-0.9); SGOT(AST) 27 U/L (5-40); SGPT(ALT) 28 U/L (5-65); SODIUM, SERUM 140 MMOL/L (135-148); TOTAL BILIRUBIN 0.4 MG/DL (0-1.2); TOTAL PROTEIN 6.3 G/DL (6.0-8.5)
[2016-12-03 14:14] LABS: ALKALINE PHOSPHATASE 123 U/L (45-117); GLUCOSE, SERUM 269 MG/DL (60-99); POTASSIUM, SERUM 4.5 MMOL/L (3.5-5.3)
[2016-12-04 18:02] LABS: BE (BASE EXCESS) 0.4 MEQ/L (0 +/- 2.5); CARBOXYHEMOGLOBIN 0.3 % (0-3); HCO3 (ACTUAL BICARBONATE) 24.4 MEQ/L (23-27); HEMOBLOGIN CONTENT 10.8 G/DL (14-18); INSTRUMENT SERIAL # 11843; METHEMOGLOBIN 0.5 % (0-3); MODE SIMV; O2 CONTENT 15.9 VOL% (18-24); OPERATOR ID 13624; PCO2 (CO2 TENSION) 37 MMHG (35-45); PO2 (O2 TENSION) 358 MMHG (79-93); SAMPLE Arterial; TIDAL VOLUME 600 ML; pH 7.44 (7.37-7.43)
[2016-12-04 18:48] LABS: HEMOGLOBIN 9.9 g/dL (13.6-17.8); PLATELET COUNT 107 10/3/uL (150-400)
[2016-12-04 18:55] LABS: INTERNATIONAL NORMAL RATI 1.6 UNITS (-); PARTIAL THROMBO TIME 36.5 SEC (22.5-37.2)
[2016-12-04 18:56] LABS: FIBRINOGEN 159 MG/DL (230-462)
[2016-12-04 19:02] LABS: BUN (BLOOD UREA NITROGEN) 16 MG/DL (6-23); CALCIUM, SERUM 8.3 MG/DL (8.5-10.4); CHLORIDE, SERUM 113 MMOL/L (96-112); CO2 (CARBON DIOXIDE) 27 MMOL/L (24-34); CREATININE 0.73 MG/DL (0.70-1.30); GFR AFRICAN AMERICAN 115 ML/MIN (>=60); GFR NON AFRICAN AMERICAN 99 ML/MIN (>=60); POTASSIUM, SERUM 3.8 MMOL/L (3.5-5.3)
[2016-12-04 19:03] LABS: GLUCOSE, SERUM 97 MG/DL (60-99); SODIUM, SERUM 147 MMOL/L (135-148)
[2016-12-04 19:04] LABS: PROTIME (NOT ORD) 19.1 SEC (12.0-14.5)
[2016-12-04 23:18] LABS: BE (BASE EXCESS) -0.8 MEQ/L (0 +/- 2.5); CARBOXYHEMOGLOBIN 0.3 % (0-3); DEVICE NC; HCO3 (ACTUAL BICARBONATE) 24.5 MEQ/L (23-27); HEMOBLOGIN CONTENT 10.4 G/DL (14-18); INSTRUMENT SERIAL # 11843; METHEMOGLOBIN 0.4 % (0-3); O2 CONTENT 14.6 VOL% (18-24); OPERATOR ID 16469; PCO2 (CO2 TENSION) 43 MMHG (35-45); PO2 (O2 TENSION) 165 MMHG (79-93); SAMPLE Arterial; pH 7.37 (7.37-7.43)
[2016-12-05 01:31] LABS: HEMATOCRIT 28.8 % (40.0-51.0); HEMOGLOBIN 9.4 g/dL (13.6-17.8)
[2016-12-05 01:44] LABS: BUN (BLOOD UREA NITROGEN) 18 MG/DL (6-23); CALCIUM, SERUM 7.8 MG/DL (8.5-10.4); CHLORIDE, SERUM 114 MMOL/L (96-112); CO2 (CARBON DIOXIDE) 29 MMOL/L (24-34); CREATININE 0.67 MG/DL (0.70-1.30); GFR AFRICAN AMERICAN 119 ML/MIN (>=60); GFR NON AFRICAN AMERICAN 103 ML/MIN (>=60); GLUCOSE, SERUM 102 MG/DL (60-99); POTASSIUM, SERUM 4.4 MMOL/L (3.5-5.3); SODIUM, SERUM 147 MMOL/L (135-148)
[2016-12-05 04:44] LABS: BASOPHILS 0.2 %; BASOPHILS ABSOLUTE 0.02 10/3/uL (0.0-0.16); EOSINOPHILS 0.1 %; EOSINOPHILS ABSOLUTE 0.01 10/3/uL (0.0-0.53); HEMATOCRIT 27.7 % (40.0-51.0); HEMOGLOBIN 9.2 g/dL (13.6-17.8); IMMATURE GRANULOCYTES 0.3 %; IMMATURE GRANULOCYTES ABSOLUTE 0.03 10/3/uL (0.0-0.11); LYMPHOCYTES 8.2 %; MEAN CORPUS HGB CONC 33.2 g/dL (32.0-36.0); MEAN CORPUSCULAR HEMOGLOB 28.8 pg (26.0-34.0); MEAN CORPUSCULAR VOLUME 86.8 fL (80-100); MEAN PLATELET VOLUME 10.4 fL (9.2-13.0); MONOCYTES 8.4 %; MONOCYTES ABSOLUTE 0.82 10/3/uL (0.21-1.20); NEUTROPHILS 82.8 %; NEUTROPHILS ABSOLUTE 8.09 10/3/uL (2.02-8.40); RBC DISTRIBUTION WIDTH 13.7 % (12.0-16.0)
[2016-12-05 04:45] LABS: MANUAL DIFF NO %; PLATELET COUNT 155 10/3/uL (150-400); RED CELL COUNT 3.19 10/6/uL (4.7-6.1); WHITE BLOOD CELLS 9.8 10/3/uL (4.5-10.5)
[2016-12-05 04:57] LABS: BUN (BLOOD UREA NITROGEN) 19 MG/DL (6-23); CALCIUM, SERUM 7.8 MG/DL (8.5-10.4); CHLORIDE, SERUM 113 MMOL/L (96-112); CO2 (CARBON DIOXIDE) 30 MMOL/L (24-34); CREATININE 0.64 MG/DL (0.70-1.30); GFR AFRICAN AMERICAN 122 ML/MIN (>=60); GFR NON AFRICAN AMERICAN 105 ML/MIN (>=60); GLUCOSE, SERUM 120 MG/DL (60-99); POTASSIUM, SERUM 4.4 MMOL/L (3.5-5.3); SODIUM, SERUM 146 MMOL/L (135-148)
[2016-12-05 18:12] LABS: HEMATOCRIT 30.9 % (40.0-51.0)
[2016-12-05 18:18] LABS: POTASSIUM, SERUM 4.3 MMOL/L (3.5-5.3)
[2016-12-06 06:17] LABS: HEMATOCRIT 30.7 % (40.0-51.0); HEMOGLOBIN 10.4 g/dL (13.6-17.8); MEAN CORPUS HGB CONC 33.9 g/dL (32.0-36.0); MEAN CORPUSCULAR HEMOGLOB 29.7 pg (26.0-34.0); MEAN CORPUSCULAR VOLUME 87.7 fL (80-100); MEAN PLATELET VOLUME 10.8 fL (9.2-13.0); PLATELET COUNT 165 10/3/uL (150-400); RBC DISTRIBUTION WIDTH 14.2 % (12.0-16.0); WHITE BLOOD CELLS 9.4 10/3/uL (4.5-10.5)
[2016-12-06 06:20] LABS: MANUAL DIFF YES %
[2016-12-06 06:33] LABS: BUN (BLOOD UREA NITROGEN) 21 MG/DL (6-23); CHLORIDE, SERUM 104 MMOL/L (96-112); CO2 (CARBON DIOXIDE) 27 MMOL/L (24-34); CREATININE 0.63 MG/DL (0.70-1.30); GFR AFRICAN AMERICAN 122 ML/MIN (>=60); GFR NON AFRICAN AMERICAN 106 ML/MIN (>=60); POTASSIUM, SERUM 4.8 MMOL/L (3.5-5.3)
[2016-12-06 06:34] LABS: CALCIUM, SERUM 9.2 MG/DL (8.5-10.4); GLUCOSE, SERUM 205 MG/DL (60-99); SODIUM, SERUM 139 MMOL/L (135-148)
[2016-12-06 07:13] LABS: BAND NEUTROPHILS 15 %; EOSINOPHILS 2 %; EOSINOPHILS ABSOLUTE (CALC) 0.19 10/3/uL (0.0-0.53); IMMATURE GRANS ABSOLUTE (CALC) 0.19 10/3/uL (0.0-0.11); LYMPHOCYTES 10 %; LYMPHOCYTES ABSOLUTE (CALC) 0.94 10/3/uL (0.67-4.30); METAMYELOCYTES 2 %; MONOCYTES 17 %; NEUTROPHILS ABSOLUTE (CALC) 6.49 10/3/uL (2.02-8.40); SEGMENTED NEUTROPHIL (0) 54 %; TOTAL NUCLEATED CELLS 100
[2016-12-06 07:14] LABS: ELLIPTOCYTES 1+ (3-10/OIF) (0-2/OIF); PLATELET ESTIMATE ADQ (ADEQUATE); POLYCHROMASIA 1+ (2-5/OIF) (0-1/OIF); TOXIC GRANULATION SLT; VACUOLATED NEUTROPHILES OCC
[2016-12-06 07:17] LABS: TEARDROP SHAPED RBCS OCC (0-2/OIF)
[2016-12-07 13:02] LABS: BASOPHILS 0.2 %; BASOPHILS ABSOLUTE 0.02 10/3/uL (0.0-0.16); EOSINOPHILS 0.2 %; EOSINOPHILS ABSOLUTE 0.02 10/3/uL (0.0-0.53); HEMATOCRIT 28.5 % (40.0-51.0); HEMOGLOBIN 9.5 g/dL (13.6-17.8); IMMATURE GRANULOCYTES 0.2 %; IMMATURE GRANULOCYTES ABSOLUTE 0.02 10/3/uL (0.0-0.11); LYMPHOCYTES 16.4 %; LYMPHOCYTES ABSOLUTE 1.63 10/3/uL (0.67-4.30); MEAN CORPUS HGB CONC 33.3 g/dL (32.0-36.0); MEAN CORPUSCULAR HEMOGLOB 28.9 pg (26.0-34.0); MEAN CORPUSCULAR VOLUME 86.6 fL (80-100); MEAN PLATELET VOLUME 9.8 fL (9.2-13.0); MONOCYTES 14.2 %; MONOCYTES ABSOLUTE 1.41 10/3/uL (0.21-1.20); NEUTROPHILS 68.8 %; NEUTROPHILS ABSOLUTE 6.82 10/3/uL (2.02-8.40); PLATELET COUNT 209 10/3/uL (150-400); RED CELL COUNT 3.29 10/6/uL (4.7-6.1); WHITE BLOOD CELLS 9.9 10/3/uL (4.5-10.5)
[2016-12-07 13:04] LABS: MANUAL DIFF NO %
[2016-12-07 13:08] LABS: INTERNATIONAL NORMAL RATI 1.2 UNITS (-)
[2016-12-07 13:09] LABS: PROTIME (NOT ORD) 15.2 SEC (12.0-14.5)
[2016-12-07 13:19] LABS: BUN (BLOOD UREA NITROGEN) 24 MG/DL (6-23); CALCIUM, SERUM 8.7 MG/DL (8.5-10.4); CHLORIDE, SERUM 102 MMOL/L (96-112); CO2 (CARBON DIOXIDE) 31 MMOL/L (24-34); CREATININE 0.62 MG/DL (0.70-1.30); GFR AFRICAN AMERICAN 123 ML/MIN (>=60); GFR NON AFRICAN AMERICAN 106 ML/MIN (>=60); POTASSIUM, SERUM 4.2 MMOL/L (3.5-5.3); SODIUM, SERUM 137 MMOL/L (135-148)
[2016-12-07 13:21] LABS: GLUCOSE, SERUM 83 MG/DL (60-99)
[2016-12-08 05:57] LABS: CALCIUM, SERUM 8.5 MG/DL (8.5-10.4); CHLORIDE, SERUM 99 MMOL/L (96-112); CO2 (CARBON DIOXIDE) 29 MMOL/L (24-34); CREATININE 0.52 MG/DL (0.70-1.30); GFR AFRICAN AMERICAN 132 ML/MIN (>=60); GFR NON AFRICAN AMERICAN 114 ML/MIN (>=60); POTASSIUM, SERUM 4.3 MMOL/L (3.5-5.3); SODIUM, SERUM 135 MMOL/L (135-148)
[2016-12-08 05:58] LABS: BUN (BLOOD UREA NITROGEN) 19 MG/DL (6-23); GLUCOSE, SERUM 191 MG/DL (60-99); INTERNATIONAL NORMAL RATI 1.3 UNITS (-); PROTIME (NOT ORD) 16.3 SEC (12.0-14.5)
[2016-12-08 06:38] LABS: BASOPHILS 0.2 %; BASOPHILS ABSOLUTE 0.02 10/3/uL (0.0-0.16); EOSINOPHILS 0.7 %; EOSINOPHILS ABSOLUTE 0.06 10/3/uL (0.0-0.53); HEMOGLOBIN 9.5 g/dL (13.6-17.8); IMMATURE GRANULOCYTES 0.3 %; IMMATURE GRANULOCYTES ABSOLUTE 0.03 10/3/uL (0.0-0.11); LYMPHOCYTES 14.9 %; LYMPHOCYTES ABSOLUTE 1.29 10/3/uL (0.67-4.30); MEAN CORPUS HGB CONC 32.8 g/dL (32.0-36.0); MEAN CORPUSCULAR HEMOGLOB 28.5 pg (26.0-34.0); MEAN CORPUSCULAR VOLUME 87.1 fL (80-100); MEAN PLATELET VOLUME 10.2 fL (9.2-13.0); MONOCYTES 10.7 %; MONOCYTES ABSOLUTE 0.92 10/3/uL (0.21-1.20); NEUTROPHILS 73.2 %; NEUTROPHILS ABSOLUTE 6.31 10/3/uL (2.02-8.40); PLATELET COUNT 229 10/3/uL (150-400); RBC DISTRIBUTION WIDTH 13.8 % (12.0-16.0); RED CELL COUNT 3.33 10/6/uL (4.7-6.1); WHITE BLOOD CELLS 8.6 10/3/uL (4.5-10.5)
[2016-12-08 06:40] LABS: MANUAL DIFF NO %
[2016-12-08] MEDS ORDERED: LIPITOR40 (14:23)
[2016-12-08] MEDS ORDERED: COREG3 PO (14:23)
[2016-12-08] MEDS ORDERED: COUMADIN3 MG PO (14:24)
[2016-12-08] MEDS ORDERED: NORCO1 TAB PO (14:24)
[2016-12-08] MEDS ORDERED: CORDARONE PO (14:25)
[2016-12-08] MEDS ORDERED: ASAB PO (14:25)
== END 2016-12-08 16:13 | disposition home or self-care (01) | DRG 228 ==
LOC: CCU 19:05 → SSU1 11-30 10:40 → 5NO 11-30 18:19 → SDC/OF 12-04 09:56 → CVICU 12-04 13:36 → 5NO 12-05 12:24
PROVIDERS: Anesthesiology; Internal Medicine; Internal Medicine Critical Care Medicine; Nurse Practitioner Family; Thoracic Surgery (Cardiothoracic Vascular Surgery)
PROC: 02HV33Z Insertion of Infusion Device into Superior Vena Cava, Percutaneous Approach (ICD-10-PCS; 2016-11-28)
PROC: 4A02X4A Measurement of Cardiac Electrical Activity, Guidance, External Approach (ICD-10-PCS; 2016-11-28)
PROC: 4A023N7 Measurement of Cardiac Sampling and Pressure, Left Heart, Percutaneous Approach (ICD-10-PCS; principal; 2016-11-30)
PROC: 02580ZZ Destruction of Conduction Mechanism, Open Approach (ICD-10-PCS; 2016-11-30)
PROC: B2111ZZ Fluoroscopy of Multiple Coronary Arteries using Low Osmolar Contrast (ICD-10-PCS; 2016-11-30)
PROC: 02100Z9 Bypass Coronary Artery, One Artery from Left Internal Mammary, Open Approach (ICD-10-PCS; 2016-11-30)
PROC: B2151ZZ Fluoroscopy of Left Heart using Low Osmolar Contrast (ICD-10-PCS; 2016-11-30)
PROC: 021109W Bypass Coronary Artery, Two Arteries from Aorta with Autologous Venous Tissue, Open Approach (ICD-10-PCS; 2016-12-04)
PROC: 06BP0ZZ Excision of Right Saphenous Vein, Open Approach (ICD-10-PCS; 2016-12-04)
PROC: 5A1221Z Performance of Cardiac Output, Continuous (ICD-10-PCS; 2016-12-04)
PROC: 02L70CK Occlusion of Left Atrial Appendage with Extraluminal Device, Open Approach (ICD-10-PCS; 2016-12-04)
DX: I21.4 Non-ST elevation (NSTEMI) myocardial infarction (principal); E10.10 Type 1 diabetes mellitus with ketoacidosis without coma; I50.23 Acute on chronic systolic (congestive) heart failure; N17.9 Acute kidney failure, unspecified; E87.1 Hypo-osmolality and hyponatremia; I82.4Z1 Acute embolism and thrombosis of unspecified deep veins of right distal lower extremity; I25.10 Atherosclerotic heart disease of native coronary artery without angina pectoris; Z95.5 Presence of coronary angioplasty implant and graft; Z79.4 Long term (current) use of insulin; I48.0 Paroxysmal atrial fibrillation; E78.5 Hyperlipidemia, unspecified; D47.3 Essential (hemorrhagic) thrombocythemia
CPT/HCPCS: 36415; 36569; 71010; 71020; 71250; 80048; 80053; 80061; 80069; 80076; 80305; 81001; 82330; 82550; 82553; 82803; 82805; 82947; 82962; 83036; 83540; 83550; 83605; 83735; 83880; 84100; 84132; 84145; 84295; 84439; 84443; 84481; 84484; 85014; 85018; 85025; 85049; 85347; 85384; 85610; 85730; 86022; 86850; 86900; 86901; 86920; 87641; 93005; 93306; 93312; 93320; 93325; 93458; 93880; 94002; 94640; 94660; 94770; 99152; A9270-GY; C1713; C1725; C1751; C1769; C1887; C1894; C9113; G0365; J0282; J0690; J1644; J1652; J1940; J2150; J2250; J2370; J2405; J2440; J2550; J2720; J3010; J3370; J3475; J3480; P9045; P9047; Q9967